=== PATIENT | male | born 1960 | race African-American/Black ===

== ENCOUNTER 2017-02-12 10:49 | Day surgery (SDC) | payer BC ==
[2017-02-08 16:16] VITALS: BMI 24.3
[~2017-02-12 10:49] MED LIST: LEVOFLOXACIN 500 MG PREMIX BAG IVPB ONE
[2017-02-12] MEDS ORDERED: LEVOFLOXACIN 500 MG IVPB 100 ML IVPB ONE (12:46)
[2017-02-12] MEDS ORDERED: ONDANSETRON 4 MG/2 ML VIAL IVPUSH PRN (12:51)
[2017-02-12] MEDS ORDERED: PROMETHAZINE HCL 25 MG/1 ML VIAL IVPUSH PRN (12:51)
[2017-02-12] MEDS ORDERED: oxyCODONE HCL 5 MG TABLET PO PRN (12:51)
[2017-02-12] MEDS ORDERED: LACTATED RINGERS SOLUTION 1,000 ML IV SCH (13:00)
[2017-02-12] MEDS ORDERED: MIDAZOLAM HCL 2 MG/2 ML SINGLE DOSE VIAL ONE (13:00)
[2017-02-12] MEDS ORDERED: LEVOFLOXACIN 500 MG PREMIX BAG IVPB ONE (13:03)
--- NOTE | 2017-02-12 13:55 | OP ---
Operative Note - Note: Operative Date: 02/12/17 Pre-Operative Diagnosis: right renal stone Operation: right eswl Findings: [id number] right renal stone Post-Operative Diagnosis: Same as Pre-op Surgeon: Ryley Hutchison Anesthesia: General
[2017-02-12 14:12] VITALS: TEMP 97.8
[2017-02-12 15:56] VITALS: BP 135/75; PULSE 55
--- NOTE | 2017-02-13 08:10 | OP ---
DATE OF OPERATION: 02/12/2017 PREOPERATIVE DIAGNOSIS: Right renal stone. POSTOPERATIVE DIAGNOSIS: Right renal stone. PROCEDURE: Right extracorporeal shock wave lithotripsy. ATTENDING: Valerie Alexander MD ANESTHESIA: General. OPERATION: The patient was brought in the operating room, placed in supine position on the operating room table. Ultrasonography and fluoroscopy were performed. A 3 mm x 3 mm right renal stone was identified. At this point, general anesthesia was administered and Levaquin 500 mg was given intravenously. Extracorporeal shock wave lithotripsy was then performed on the stone with excellent fragmentation of the stone under real time ultrasonography. No complications were noted. The disposition of the patient was to the recovery room. VALERIE ALEXANDER M.D. [id number]
== END 2017-02-12 16:09 | disposition home or self-care (01) ==
LOC: JASU-SURG 10:49
PROVIDERS: ATTEND Urology
PROC: 0TF3XZZ Fragmentation in Right Kidney Pelvis, External Approach (ICD-10-PCS; principal; 2017-02-12 12:00)
DX: N20.0 Calculus of kidney (principal)
CPT/HCPCS: 94760

== ENCOUNTER 2018-11-18 11:20 | Day surgery (SDC) | payer BC ==
[2018-11-18 12:04] VITALS: BMI 22.5
[2018-11-18] MEDS ORDERED: MIDAZOLAM HCL 2 MG/2 ML SINGLE DOSE VIAL ONE (12:09)
[2018-11-18] MEDS ORDERED: LIDOCAINE HCL/PF 2% SDV 5ML VIAL ONE (12:09)
[2018-11-18] MEDS ORDERED: PROPOFOL 20 ML ONE (12:09)
--- NOTE | 2018-11-18 13:19 | OP ---
Operative Note - Note: Operative Date: 11/18/18 Pre-Operative Diagnosis: Ledft renasl stone Operation: Left ESWL Findings: 6 mm Left renal lower pole stone. Post-Operative Diagnosis: Same as Pre-op Surgeon: Ryley Hutchison Anesthesia: Fractional Estimated Blood Loss (mls): 0 Drains, Volume Out (mls): 0 Operative Report Dictated: Yes
[2018-11-18 14:46] VITALS: TEMP 97.9
[2018-11-18 15:27] VITALS: BP 132/76; PULSE 63
--- NOTE | 2018-11-18 23:21 | OP ---
DATE OF OPERATION: 11/18/2018 PREOPERATIVE DIAGNOSIS: Left renal stone. POSTOPERATIVE DIAGNOSIS: Left renal stone. PROCEDURE: Left extracorporeal shockwave lithotripsy. ATTENDING: Valerie Hutchison M.D. ANESTHESIA: Fractional. DESCRIPTION OF PROCEDURE: Patient was brought in the operating room, placed in a supine position on the operating room table. Ultrasonography and fluoroscopy were performed. A 6-mm left lower pole renal stone was identified. Anesthesia and preoperative antibiotics were then administered. Shockwave lithotripsy was then performed. No complications were noted. DISPOSITION: To recovery room. VALERIE ALEXANDER M.D. [id number]
== END 2018-11-18 15:00 | disposition home or self-care (01) ==
LOC: JASU-SURG 11:20
PROVIDERS: ATTEND Urology
PROC: 0TF4XZZ Fragmentation in Left Kidney Pelvis, External Approach (ICD-10-PCS; principal; 2018-11-18 12:30)
DX: N20.0 Calculus of kidney (principal)

== ENCOUNTER 2024-07-07 04:30 | Day surgery (SDC) | payer BC ==
[2024-07-04 09:26] VITALS: BMI 23.2
[2024-07-07] MEDS ORDERED: PROPOFOL 20 ML ONE (16:13)
[2024-07-07] MEDS ORDERED: MIDAZOLAM HCL 2 MG/2 ML SINGLE DOSE VIAL ONE (16:13)
[2024-07-07 16:58] VITALS: PULSE 62; RESP 20
[2024-07-07 18:13] VITALS: BP 157/73; TEMP 97.1
== END 2024-07-07 18:13 | disposition home or self-care (01) ==
LOC: JASU-SURG 04:30
PROVIDERS: ATTEND Urology
PROC: 0TF3XZZ Fragmentation in Right Kidney Pelvis, External Approach (ICD-10-PCS; principal; 2024-07-07 15:30)
DX: N20.0 Calculus of kidney (principal)